=== PATIENT | male | born 1985 | race Caucasian/White ===

== ENCOUNTER 2024-09-10 13:09 | Day surgery (SDC) | payer OTHER, SELFPAY ==
[2024-09-10 13:34] VITALS: BMI 27.7
[2024-09-10 13:35] VITALS: BP 126/73; PULSE 63; RESP 20; TEMP 36.6; O2SAT 100
--- NOTE | 2024-09-10 15:02 | P.PNANES_ITS ---
[facility] Disclaimer: The information contained in this section may have been updated after the patient was seen, as this information can be updated by other users. Medical History Anxiety Surgical History History of cholecystectomy Social History (Updated 09/10/24 @ 13:40 by Debra Sawyer RN) Smoking Status: Never smoker alcohol intake: current substance use type: denies use current occupational status: employed Travel in the last 8 weeks: None caffeine: Yes [facility] Anesthesia Checklist Patient Identification Patient Identification: Arm Band Structural Data Admitted From: Home Planned Operative Procedure/s: EGD Consent for Planned Operative Procedure(s) Verified: Yes Verified Documents: Surgical Consent and History and Physical NPO Status Verified Time NPO: 00:00 Additional verifications Anesthesia Reactions: No Airway Assessment Mallampati Score:: Class II C-Spine Mobility Assessed: Yes TMJ Mobility Assessed: Yes Dentition: Good Dentition Neurological Assessment Level of Consciousness: Awake, Alert and Appropriate Anesthesia Plan Anesthesia Risk discussed: Yes Anesthesia Plan: Verified ASA Class: I Anesthesia Type: MAC
--- NOTE | 2024-09-10 15:19 | EXP.HP ---
History of Present Illness *Admission Date: 09/10/24 *Reason for visit:: Dyspepsia *History of present illness: Mr. Martinez is a 39-year-old gentleman who is here for episodic acute dyspepsia for 2 years. He did have cholecystectomy for a nonfunctioning gallbladder in 2021. He does state things have improved since then but over the last year he has had 4 more severe episodes of acute epigastric abdominal pain. The year before he had 15 episodes. The patient reports severe mid epigastric abdominal pain with associated bloating. This often occurs in the middle the night. It can occur while he is on vacation and is not associated with stress or anxiety. He does state that there is abdominal swelling and nausea. He reports no heartburn or reflux. He does report regular bowel function and does have occasional excessive wiping. He has had difficulty scheduling with GI in [facility] and his mother was a patient and referred him to me. When these acute attacks occur he will have to walk around and they often last for 30 minutes. He takes Gas-X and Tums with some relief. When these episodes do not occur, as a baseline he does have some early satiety during the day and some belching. He has rare nausea. He reports no weight loss, melena or hematochezia. He has never had endoscopy or colonoscopy. [facility] Disclaimer: The information contained in this section may have been updated after the patient was seen, as this information can be updated by other users. Medical History Anxiety Surgical History History of cholecystectomy Social History (Updated 09/10/24 @ 15:03 by Ferdinand Davidson CRNA) Smoking Status: Never smoker alcohol intake: current substance use type: denies use current occupational status: employed Travel in the last 8 weeks: None caffeine: Yes Have you lived/traveled outside [place] in past 30 days?: No Contact w/someone who lives/traveled outside [place] past 30 days?: No Exposure to someone with infectious disease in past 14 days?: No Do you have a fever (greater than 100.4 F or 38 C)?: No Have you tested positive for COVID-19: No Exposed to someone with COVID-19 in past 14 days?: No Do you have a sore throat?: No Do you have a cough?: No Do you have any weakness?: No Do you have any diarrhea?: No Are you experiencing any unusual bleeding?: No Do you have any muscle aches/pain?: No Do you have any abdominal pain?: No Are you experiencing loss of taste or smell?: No Review of Systems Review of Systems Review of systems (narrative): Negative *Cardiovascular Comments: Negative *Gastrointestinal Comments: Negative *Genitourinary Comments: Negative *Musculoskeletal Comments: Negative *Neurologic Comments: Negative Meds Home Medications and Allergies Home Medications ?Medication ?Instructions ?Recorded ?Confirmed ?Type No Known Home Medications 07/11/24 09/10/24 History New Prescriptions to Start Prescriptions: Allergies Allergy/AdvReac Type Severity Reaction Status Date / Time No Known Allergies Allergy Verified 09/10/24 13:41 Exam Data for Last 24 hours Vital signs and Labs for Last 24 Hours: Temp Pulse Resp BP Pulse Ox O2 Del Method 97.8 F 63 20 126/73 100 Room Air 09/10/24 13:35 09/10/24 13:35 09/10/24 13:35 09/10/24 13:35 09/10/24 13:35 09/10/24 13:35 I & O for Last 24 hours: Intake & Output 09/07/24 09/08/24 09/09/24 09/10/24 23:59 23:59 23:59 23:59 Weight 210 lb *Routine HEENT Exam Head: Present normocephalic Eye: Present EOMI and PERRL ENT: Present mucous membranes moist *Routine Neck Exam Neck: Present supple *Routine Respiratory Exam Respiratory: Present CTA bilaterally *Routine Cardiovascular Exam Cardiovascular: Present RRR *Routine Abdominal Exam Abdominal: Present soft and normoactive bowel sounds; Absent tenderness *Routine Rectal Exam Rectal:: deferred *Routine Genitalia Exam Genitalia:: deferred *Routine Extremities Exam Extremities: Absent cyanosis, clubbing or edema *Routine Skin Exam Skin: Present warm; Absent rash *Routine Neurological Exam Neurological: Present alert and oriented X3 Assessment and Plan *Assessment and plan (1) Intermittent epigastric abdominal pain: Status: Acute Category: Medical Code(s): R10.13 - Epigastric pain (2) Bloating: Status: Acute Category: Medical Code(s): R14.0 - Abdominal distension (gaseous) (3) Belching: Status: Acute Category: Medical Code(s): R14.2 - Eructation Plan A/P: 1. Intermittent epigastric abdominal pain, bloating and belching is the preprocedural diagnosis. The patient will be anesthetized/sedated using MAC sedation. The patient has been seen and examined. Cardiac and lung assessment prior to the examination is stable. Proceed with planned diagnostic EGD
--- NOTE | 2024-09-10 15:20 | P.PCN_ITS ---
[facility] Procedure Note Date: 09/10/24 Time: 15:38 Procedure Note:: Upper Endoscopy Procedure Report: Esophagogastroduodenoscopy with cold biopsies Endoscopost: Gerardo Rios II, MD Referring Physician: Amanda Gomez MD, [address] [place], [place] [id number] Date of Procedure: September 10, 2024 Equipment: Olympus GIF 190 standard upper endoscope Sedation: MAC sedation Indications: Mr. Martinez is a 39-year-old gentleman who is here for diagnostic upper endoscopy. The patient has had episodic acute dyspepsia for 2 years. He did have cholecystectomy for a nonfunctioning gallbladder in 2021. He does state things have improved since then but over the last year he has had 5 more severe episodes of acute epigastric abdominal pain. The year before he had 15 episodes. The patient reports severe mid epigastric abdominal pain with associated bloating. This often occurs in the middle the night. It can occur while he is on vacation and is not associated with stress or anxiety. He does state that there is abdominal swelling and nausea. He reports no heartburn or reflux. He does report regular bowel function and does have occasional excessive wiping. He has had difficulty scheduling with GI in [facility] and his mother was a patient and referred him to me. When these acute attacks occur he will have to walk around and they often last for 30 minutes. He takes Gas-X and Tums with some relief. When these episodes do not occur, as a baseline he does have some early satiety during the day and some belching. He has rare nausea. He reports no weight loss, melena or hematochezia. He has never had endoscopy or colonoscopy. Procedure: Prior to the procedure, a history and physical exam was performed, and patient's medications and allergies were reviewed. The risks, benefits and alternatives of the sedation and procedure were discussed with the patient. All questions were answered and informed consent was obtained. The patient was brought to the procedure room. Patient identification and proposed procedure were verified by the physician and the nurse. The patient was placed in a left lateral decubitus position and the scope was passed under direct vision. Throughout the procedure, the patient's blood pressure, pulse, and oxygen saturations were monitored continuously. The upper GI endoscopy was accomplished without difficulty. The patient tolerated the procedure well. Findings: The scope was passed directly into the upper esophagus and advanced to the third portion of the duodenum. The post bulbar duodenum, ampulla and duodenal bulb were normal with normal mucosa and conniventes. The scope was withdrawn through a normal duodenal bulb and pylorus into the stomach. There was marked bile reflux with moderate linear reactive gastropathy of the antrum and body of the stomach. Biopsies were obtained from the antrum of the stomach. Upon retroflexion, the fundus of the stomach was normal and there was no hiatal hernia. The scope was then withdrawn into the esophagus. There was no evidence of reflux esophagitis or Swain's. There was a serrated Z-line and biopsies were taken from the GE junction. The remainder of the esophageal mucosa was normal. Impression: 1. Bile reflux with moderate linear reactive gastropathy Plan: I do feel that the patient has intermittent pylorospasm related to the marked bile reflux/duodenal reflux. I had recommended Konsyl and Iberogast. I would recommend combined MiraLAX plus Konsyl presently. We will discuss additional treatment options. I will follow-up the biopsies. Based upon the unusual nature and the fact that he gets this severe and intermittent, I would consider other potential etiologies including acute intermittent porphyria. I would do first-line testing with spot urine PBG (porphobilinogen) and total porphyrins.
[2024-09-10 15:24] VITALS: O2SAT 99
[2024-09-10 15:42] VITALS: BP 164/90; PULSE 82; RESP 18; TEMP 36.6; O2SAT 97
[2024-09-10 15:52] VITALS: BP 163/88; PULSE 82; RESP 16; O2SAT 97
[2024-09-10 16:02] VITALS: BP 159/98; PULSE 97; RESP 16; O2SAT 97
[2024-09-10 16:12] VITALS: BP 153/80; PULSE 97; RESP 16; TEMP 36.6; O2SAT 98
== END 2024-09-10 16:20 | disposition home or self-care (01) ==
PROVIDERS: Visit Provider Internal Medicine Gastroenterology
PROC: 0DJ08ZZ Inspection of Upper Intestinal Tract, Via Natural or Artificial Opening Endoscopic (ICD-10-PCS; CPT 43239; principal; 2024-09-10 15:00)
DX: R10.13 Epigastric pain (principal); R14.0 Abdominal distension (gaseous); R14.2 Eructation; K31.3 Pylorospasm, not elsewhere classified; K31.9 Disease of stomach and duodenum, unspecified
CPT/HCPCS: 43239